=== PATIENT | male | born 1955 | race Caucasian/White ===

== ENCOUNTER 2019-12-16 22:27 | Emergency (ER) | payer MEDICARE, SELFPAY ==
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
[2019-12-16] MEDS: sodium chloride 0.9% 500 ML 999 ML IV (22:49)
[2019-12-16 22:50] VITALS: BP 116/67; PULSE 91; RESP 14; TEMP 37.2; O2SAT 97; BMI 27.7
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
[2019-12-16 23:00] LABS: Basophils % 0.3 %; Eosinophils # 0.1 10^3/uL (0.0-0.8); Eosinophils % 0.4 %; Hemoglobin 15.1 g/dL (11.7-16.6); Lymphocytes # 0.8 10^3/uL (0.8-4.8); Lymphocytes % 5.7 %; Mean Corpuscular HGB Conc 32.8 g/dL (30.0-36.0); Mean Corpuscular Hemoglobin 29.4 pg (28.0-34.0); Mean Corpuscular Volume 89.5 fL (80-94); Mean Platelet Volume 10.2 fL (7.4-10.4); Monocytes # 0.9 10^3/uL (0.2-0.9); Monocytes % 6.5 %; Neutrophils % 86.8 %; Nucleated Red Blood Cells % 0 %; Platelet Count 213 10^3/cmm (130-400); Red Blood Count 5.14 10^6/uL (4.1-5.3); Red Cell Distribution Width 12.5 % (12.1-15.1); White Blood Count 13.8 10^3/uL (4.0-10.0)
[2019-12-16 23:15] LABS: Alanine Aminotransferase 34 U/L (0-41); Albumin Level 4.5 g/dL (3.5-5.2); Alcohol Level 11 mg/dL (0-10); Alkaline Phosphatase 62 IU/L (40-130); Anion Gap 18.5 (5-19); Aspartate Amino Transferase 37 U/L (0-40); Blood Urea Nitrogen 28 mg/dL (8-23); Calcium 9.1 mg/dL (8.5-10.5); Carbon Dioxide 24 mmol/L (22-29); Chloride 101 mmol/L (98-107); Globulin 3.2 g/dL (1.3-4.6); Glomerular Filtration Rate 50.7 mL/min (90-130); Glucose 128 mg/dL (65-115); Osmolality Calculated 287 mOsm/kg (285-295); Potassium 4.5 mmol/L (3.5-5.1); Sodium 139 mmol/L (136-145); Total Bilirubin 0.8 mg/dL (0.15-1.2); Total Protein 7.7 g/dL (6.6-8.7)
[2019-12-17] MEDS: iodixanol 320 mg/mL 100mL Btl IV (00:01)
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
[2019-12-17 01:18] VITALS: BP 117/67; PULSE 76; RESP 16; O2SAT 98
[2019-12-17 01:37] VITALS: BP 113/71; PULSE 78; RESP 18; O2SAT 98
[2019-12-17 02:23] VITALS: BP 110/68; RESP 18; O2SAT 96
== END 2019-12-17 02:30 | disposition other institution (70) ==
PROVIDERS: Nurse Practitioner Family; Emergency Provider Emergency Medicine
DX: S01.01XA Laceration without foreign body of scalp, initial encounter (principal); S01.81XA Laceration without foreign body of other part of head, initial encounter; R41.0 Disorientation, unspecified; S06.5X9A Traumatic subdural hemorrhage with loss of consciousness of unspecified duration, initial encounter; S52.502A Unspecified fracture of the lower end of left radius, initial encounter for closed fracture; S02.31XA Fracture of orbital floor, right side, initial encounter for closed fracture; S02.2XXA Fracture of nasal bones, initial encounter for closed fracture; V88.9XXA Person injured in other specified (collision)(noncollision) transport accidents involving nonmotor vehicle, nontraffic, initial encounter; Y93.55 Activity, bike riding
CPT/HCPCS: 12004; 12013; 12345; 29125; 70450; 70486; 71260; 72125; 73090; 73130; 73590; 74177; 80053; 80307; 85025; 99283; 99285; J7040; Q9967